=== PATIENT | male | born 1970 | race Two or more races ===

== ENCOUNTER → 2020-03-09 | Emergency (ER) | payer OTHER ==
[~2020-03-09] VITALS: Ht 188 cm; Wt 122.5 kg
[~2020-03-09] MED LIST: ASPIR 8181 MG PO; ATORVASTATIN CA10 MG PO; AVAPRO300 MG PO; BRILINTA90 MG PO; HYDROCHLOROTH12.5 MG PO; LIPITOR20 MG PO; NABUMETONE500 MG PO; PERCOCET 5/3251 TAB PO
== END | disposition left against medical advice (07) ==
LOC: ER 06:17
DX: R07.89 Other chest pain (principal); R06.02 Shortness of breath